=== PATIENT | male | born 1985 | race African-American/Black ===

== ENCOUNTER 2023-10-02 16:08 | Emergency (ER) | payer SELFPAY ==
[~2023-10-02] VITALS: Ht 182.9 cm; Wt 108.0 kg
[2023-10-02 16:14] VITALS: BP 166/89; PULSE 69; RESP 20; TEMP 97.9; O2SAT 100
[2023-10-02 16:35] LABS: CLARITY URINE CLEAR (CLEAR); COLOR URINE YELLOW (YELLOW); GLUCOSE URINE NEGATIVE (NEGATIVE); KETONES URINE NEGATIVE (NEGATIVE); LEUKOCYTE ESTERASE URINE NEGATIVE (NEGATIVE); NITRITE URINE NEGATIVE (NEGATIVE); OCCULT BLOOD URINE NEGATIVE (NEGATIVE); PH URINE 7.5 (4.5-8.0); PROTEIN URINE NEGATIVE (NEGATIVE); SPECIFIC GRAVITY URINE 1.018 (1.005-1.030); UROBILINOGEN URINE 0.2 E.U./dL (0.2-1.0)
[2023-10-02] MEDS ORDERED: DOXYCYCLINE HYCLATE 100MG CAPSULE PO ONE (17:30)
[2023-10-02] MEDS ORDERED: CEFTRIAXONE SODIUM 500 MG/VIAL IM ONE (17:30)
[2023-10-02] MEDS ORDERED: DOXY-456 MT (18:22)
[2023-10-02] MEDS ORDERED: DOXYCYCLINE HYCLATE 100MG CAPSULE PO NR (21:00)
[2023-10-02] MEDS ORDERED: CEFTRIAXONE SODIUM 500 MG/VIAL IM NR (21:00)
[2023-10-05 10:12] LABS: CHLAMYDIA TRACHOMATIS NAA Negative (Negative); NEISSERIA GONORRHOEAE NAA Negative (Negative)
== END 2023-10-02 21:28 | disposition home or self-care (01) ==
LOC: ER 16:08
DX: R21 Rash and other nonspecific skin eruption (principal); J45.909 Unspecified asthma, uncomplicated; Z11.3 Encounter for screening for infections with a predominantly sexual mode of transmission
CPT/HCPCS: 87491; 87591; 81003; 96372; 99283; J0696; Z7610 ×2